=== PATIENT | female | born 1955 | race Caucasian/White ===

== ENCOUNTER 2017-08-02 05:15 | Emergency (ER) | payer MEDICAID ==
[2017-08-02] MEDS ORDERED: Sodium Chloride 0.9% 10 ML Syringe FLUSH PRN (06:07)
[2017-08-02] MEDS ORDERED: methylPREDNISolone Sodium Succinate 125 MG/2 ML SDV IVPUSH ONE (06:07)
--- NOTE | 2017-08-02 06:07 | EDM.PDOC ---
ED HPI GENERAL MEDICAL PROBLEM - General Chief Complaint: Respiratory Problem Stated Complaint: [facility] Time Seen by Provider: 08/02/17 05:30 Source of Information: Reports: Patient, EMS History Limitations: Reports: No Limitations - History of Present Illness INITIAL COMMENTS - FREE TEXT/NARRATIVE: 62-year-old female with known COPD finished a steroid taper a week ago and was supposed to start on inhaled corticosteroids but is having trouble finding one that is covered by insurance. She's been worsening over the past several days and had an appointment at the clinic this morning at 9:00 but had to call the ambulance tonight because she "just couldn't breathe". She has a cough but is nonproductive, no fevers or chills. No abdominal pain. She doesn't want to take anymore prednisone or antibiotics. Onset: Gradual Severity: Moderate Associated Symptoms: Reports: Malaise, Shortness of Breath, Weakness. 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 Denies: Fever, Chills HEENT: Denies: Throat Pain Respiratory: Reports: Shortness of Breath, Cough. Denies: Sputum Cardiovascular: Denies: Chest Pain Endocrine: Reports: Fatigue GI/Abdominal: Denies: Abdominal Pain, Nausea, Vomiting : Reports: No Symptoms Skin: Reports: No Symptoms Neurological: Denies: Headache ED EXAM, GENERAL - Physical Exam Exam: See Below Exam Limited By: No Limitations General Appearance: Alert, Anxious, Mild Distress (She does appear to be laboring with her breathing a small amount) Respiratory/Chest: Respiratory Distress (Some extra respiratory effort is being used), Decreased Breath Sounds (She has very diffuse decreased breath sounds) Cardiovascular: Regular Rate, Rhythm. No: Tachycardia GI/Abdominal: Other (Nontender, morbidly obese) Extremities: Other (Has some puffiness to the lower extremities but no pitting edema) Neurological: Alert, Oriented Psychiatric: Anxious Skin Exam: Warm, Dry Course - Vital Signs Last Recorded V/S: Last Vital Signs Temp 97.9 F 08/02/17 07:09 Pulse 106 H 08/02/17 07:09 Resp 16 08/02/17 07:09 BP 146/69 H 08/02/17 07:09 Pulse Ox 92 L 08/02/17 07:09 - Orders/Labs/Meds Orders: Active Orders 24 hr Category Date Time Status Saline Lock Insert [OM.PC] Routine Oth 08/02/17 06:07 Ordered Labs: Laboratory Tests 08/02/17 08/02/17 08/02/17 Range/Units 05:59 05:59 05:59 WBC 10.2 (4.5-11.0) K/uL RBC 4.98 (3.30-5.50) M/uL Hgb 14.2 (12.0-15.0) g/dL Hct 44.1 (36.0-48.0) % MCV 89 (80-98) fL MCH 29 (27-31) pg MCHC 32 (32-36) % Plt Count 216 (150-400) K/uL Neut % (Auto) 62 (36-66) % Lymph % (Auto) 23 L (24-44) % Teller % (Auto) 8 H (2-6) % Eos % (Auto) 6 H (2-4) % Baso % (Auto) 0 (0-1) % D-Dimer, Quantitative < 100 (0.0-400.0) ng/mL Sodium 141 (140-148) mmol/L Potassium 3.8 (3.6-5.2) mmol/L Chloride 103 (100-108) mmol/L Carbon Dioxide 31 (21-32) mmol/L Anion Gap 7.3 (5.0-14.0) mmol/L BUN 16 (7-18) mg/dL Creatinine 0.8 (0.6-1.0) mg/dL Est Cr Clr Drug Dosing 56.19 mL/min Estimated GFR (MDRD) > 60 (>60) Glucose 125 H (74-106) mg/dL Calcium 8.4 L (8.5-10.1) mg/dL Meds: Medications Discontinued Medications Generic Name Dose Route Start Last Admin Trade Name Farideh PRN Reason Stop Dose Admin Methylprednisolone Sodium Succinate 125 mg 08/02/17 06:07 08/02/17 06:23 Solu-Medrol IVPUSH 08/02/17 06:08 125 mg ONETIME ONE Administration Sodium Chloride 10 ml 08/02/17 06:07 08/02/17 06:23 Saline Flush FLUSH 10 ml ASDIRECTED PRN Administration Keep Vein Open - Re-Assessments/Exams Free Text/Narrative Re-Assessment/Exam: 08/02/17 06:06 CBC, BMP, TSH, d-dimer and blood gases were ordered. Patient refused the blood gases. She was then sent back for a two-view chest x-ray. 08/02/17 06:46 Chest x-ray actually looked normal, BMP was relatively normal and d-dimer was negative. An IV was started and the patient was given 125 mg of IV Solu-Medrol. He was recommended she stay in the hospital for a couple days to get her lungs stabilized but she wanted to go home and refused admission. She was restarted on prednisone at 60 mg a day and will taper over the next 10 days, and I asked her to recheck at the clinic early next week. She can return if worsening. Departure - Departure Time of Disposition: 07:10 Disposition: Home, Self-Care 01 Condition: Fair Clinical Impression: COPD exacerbation, Anxiety - Discharge Information Instructions: Chronic Obstructive Pulmonary Disease Exacerbation, [id number] Referrals: PCP,None [Ordering Only Provider] - Forms: ED Department Discharge Care Plan Goals: Take prednisone as prescribed. Take the full daily dose with your breakfast or noon meal for the next 10 days. Continue your other medications as prescribed. Recheck early next week, or return to the emergency room if not improving satisfactorily. - My Orders Last 24 Hours: My Active Orders 08/02/17 06:07 Saline Lock Insert [OM.PC] Routine - Assessment/Plan Last 24 Hours: My Active Orders 08/02/17 06:07 Saline Lock Insert [OM.PC] Routine
--- NOTE | 2017-08-02 09:31 | CR ---
Chest 2V HISTORY: Dyspnea COMPARISON: None FINDINGS: Cardiac size and pulmonary vessels normal. There are no infiltrates or effusions. No pneumo thorax. The osseous structures appear normal. IMPRESSION: No acute pulmonary disease.
== END 2017-08-02 07:12 | disposition home or self-care (01) ==
LOC: JP.ED 05:15
DX: J44.1 Chronic obstructive pulmonary disease with (acute) exacerbation (principal); F41.9 Anxiety disorder, unspecified; I10 Essential (primary) hypertension; E03.9 Hypothyroidism, unspecified; Z88.5 Allergy status to narcotic agent
CPT/HCPCS: 36415; 71046; 80048; 85025; 85379; 96374; 99284; J2930; J7050